=== PATIENT | female | born 1960 | race African-American/Black ===

== ENCOUNTER 2022-11-12 18:00 | Inpatient (IN) | payer BC, OTHER ==
[~2022-11-12] VITALS: Ht 149.9 cm; Wt 111.1 kg
[~2022-11-12 18:00] MED LIST: BENA10TA
[2022-11-12] MEDS: BLOOD SUGAR DIAGNOSTIC STRIP TEST SCH ×5 (18:00→23:28)
[2022-11-12] MEDS ORDERED: SODIUM CHLORIDE 0.9% 1,000 ML IV ONE ×3 (18:15→19:45)
[2022-11-12 18:42] LABS: BASOPHILS % 0.2 % (0.0-2.0); EOSINOPHILS % 0.1 % (0.0-5.0); HEMATOCRIT. 45.9 % (36.0-48.0); HEMOGLOBIN. 12.8 g/dL (12.0-16.0); LYMPHOCYTES % 12.9 % (20.0-50.0); MEAN CORPUSCULAR HEMOGLOBIN 27.8 pg (28.0-32.0); MEAN CORPUSCULAR VOLUME 99.8 fL (81.0-99.0); MEAN PLATELET VOLUME 11.5 fl (7.4-10.4); MONOCYTES % 5.7 % (2.0-8.0); NEUTROPHILS % 81.1 % (40.0-76.0); PLATELET 328 x1000/uL (130-400); RED CELL DISTRIBUTION WIDTH 15.8 % (11.6-14.6)
[2022-11-12 18:51] LABS: CHLORIDE 97 mEq/L (98-107)
[2022-11-12 18:54] LABS: PARTIAL THROMBOPLASTIN TIME 22.2 sec (23.4-31.0); PROTHROMBIN TIME 10.9 sec (9.6-11.0)
[2022-11-12] MEDS ORDERED: CEFTRIAXONE 1GM PREMIX 50 ML IV ONE (19:00)
[2022-11-12] MEDS ORDERED: SODIUM CHLORIDE 0.9% 250 ML IV ONE (19:00)
[2022-11-12] MEDS ORDERED: VANCOMYCIN 1G PREMIX 200 ML IV SCH (19:00)
[2022-11-12 19:12] LABS: CLARITY URINE CLEAR (CLEAR); COLOR URINE YELLOW (YELLOW); KETONES URINE TRACE (NEGATIVE); LEUKOCYTE ESTERASE URINE NEGATIVE (NEGATIVE); NITRITE URINE NEGATIVE (NEGATIVE); OCCULT BLOOD URINE 1+ (NEGATIVE); PROTEIN URINE TRACE (NEGATIVE); UROBILINOGEN URINE 0.2 E.U./dL (0.2-1.0)
[2022-11-12] MEDS ORDERED: INSULIN REGULAR (DRIP) 100 UNITS in SODIUM CHLORIDE 0.9% 100 ML IV ONE (19:45)
[2022-11-12] MEDS ORDERED: INSULIN REGULAR 100U/100ML PMX 100 ML IV ONE (20:00)
[2022-11-12] MEDS ORDERED: DEXTROSE 50% WATER 50ML SYRINGE IV PRN ×2 (20:00→22:30)
[2022-11-12 20:26] LABS: BG BASE EXCESS -14.2 mmol/L (-2.0-2.0); BG CARBOXYHEMOGLOBIN 0.5 % (0.5-1.5); BG DEOXYHEMOGLOBIN 4.1 % (0.0-5.0); BG FRACTION INSPIRED OXYGEN 36; BG HCO3 ACT 13.1 mmol/L (22.0-26.0); BG METHEMOGLOBIN 0.3 % (0.0-1.5); BG OXYGEN SATURATION 95.9 % (92.0-98.5); BG OXYHEMOGLOBIN 95.1 % (94.0-97.0); BG PCO2 35.5 mmHg (35.0-45.0); BG PH 7.184 (7.350-7.450); BG PO2 96.3 mmHg (75.0-100.0); BG SAMPLE SITE RIGHT RADIAL; BG TOTAL HEMOGLOBIN 13.1 g/dL (12.0-18.0); BG VENT MODE NASAL CANNULA
[2022-11-12 21:16] LABS: PHOSPHORUS 6.5 mg/dL (2.5-4.9)
[2022-11-12] MEDS ORDERED: ACETAMINOPHEN 325MG TABLET PO PRN ×2 (22:30)
[2022-11-12] MEDS ORDERED: IPRATROPIUM/ALBUTEROL 0.5-3(2.5)MG/3ML NEB NEB PRN (22:30)
[2022-11-12] MEDS ORDERED: INSULIN REGULAR 100U/100ML PMX 100 ML IV SCH (22:30)
[2022-11-12] MEDS ORDERED: CLONIDINE 0.1MG TABLET PO PRN (22:30)
[2022-11-13] VITALS (32 sets, daily range): BP systolic 80–172; BP diastolic 50–95
[2022-11-13 00:10] LABS: PHOSPHORUS 4.3 mg/dL (2.5-4.9)
[2022-11-13] MEDS: KCL 20MEQ/100ML PREMIX 100 ML IV SCH ×2 (00:25→02:17)
[2022-11-13] MEDS: SODIUM CHLORIDE 0.45% 1,000 ML IV SCH ×2 (00:45→02:30)
[2022-11-13 01:34] LABS: PHOSPHORUS 3.9 mg/dL (2.5-4.9)
[2022-11-13] MEDS: BLOOD SUGAR DIAGNOSTIC STRIP TEST SCH ×25 (02:00→20:30)
[2022-11-13] MEDS ORDERED: INSULIN REGULAR 100U/100ML PMX 100 ML IV SCH (03:45)
[2022-11-13] MEDS: DEXT 5%/0.45% NACL 1000ML 1,000 ML IV SCH ×4 (05:10→20:30)
[2022-11-13 06:33] LABS: BASOPHILS % 0.5 % (0.0-2.0); HEMATOCRIT. 44.6 % (36.0-48.0); HEMOGLOBIN. 14.6 g/dL (12.0-16.0); LYMPHOCYTES % 9.9 % (20.0-50.0); MEAN CORPUSCULAR HEMOGLOBIN 27.9 pg (28.0-32.0); MEAN PLATELET VOLUME 10.1 fl (7.4-10.4); MONOCYTES % 6.3 % (2.0-8.0); NEUTROPHILS % 83.3 % (40.0-76.0); PLATELET 268 x1000/uL (130-400); RED BLOOD CELL COUNT 5.24 mill/uL (4.2-5.4); RED CELL DISTRIBUTION WIDTH 13.9 % (11.6-14.6)
[2022-11-13 06:42] LABS: CHLORIDE 123 mEq/L (98-107)
[2022-11-13 06:56] LABS: HDL CHOLESTEROL 50 mg/dL (40-59); LDL CHOLESTEROL 84 mg/dL (5-100); PHOSPHORUS 3.8 mg/dL (2.5-4.9); T4 FREE 0.93 ng/dL (0.76-1.46)
[2022-11-13] MEDS: ENOXAPARIN 30MG/0.3ML SYR SUBCUT SCH ×2 (09:14→22:30)
[2022-11-13] MEDS: METOPROLOL TARTRATE 25MG TABLET PO SCH ×2 (09:15→17:26)
[2022-11-13] MEDS: AMLODIPINE 10MG TABLET PO SCH (09:15)
[2022-11-13] MEDS: BENAZEPRIL 10MG TABLET PO SCH (09:16)
[2022-11-13] MEDS: PANTOPRAZOLE SODIUM 40 MG/VIAL IV SCH (09:16)
[2022-11-13] MEDS: INSULIN GLARGINE 100 UNITS/ML SUBCUT SCH (10:31)
[2022-11-13 11:59] LABS: PHOSPHORUS 3.5 mg/dL (2.5-4.9)
[2022-11-13] MEDS: INSULIN LISPRO 100 UNITS/ML SUBCUT SCH ×3 (13:20→21:00)
[2022-11-13] MEDS: HYDROCHLOROTHIAZIDE 25MG TABLET PO SCH (15:44)
[2022-11-13] MEDS ORDERED: CEFTRIAXONE IV SCH (20:00)
[2022-11-13] MEDS: VANCOMYCIN 750MG PREMIX 150 ML IV SCH (20:00)
[2022-11-13] MEDS: CEFTRIAXONE 1,000 MG in DEXTROSE 5% WATER 50 ML IV SCH (20:00)
[2022-11-13] MEDS ORDERED: SODIUM CHLORIDE 0.45% IV SCH (20:00)
[2022-11-13] MEDS ORDERED: VANCOMYCIN 1G PREMIX 200 ML IV SCH (20:30)
[2022-11-13] MEDS: INSULIN REGULAR 100U/100ML PMX 100 ML IV SCH (20:51)
[2022-11-14] VITALS (38 sets, daily range): BP systolic 119–173; BP diastolic 46–108
[2022-11-14] MEDS: DEXT 5%/0.45% NACL 1000ML 1,000 ML IV SCH ×3 (01:10→15:01)
[2022-11-14 04:58] LABS: CHLORIDE 119 mEq/L (98-107)
[2022-11-14 05:07] LABS: PHOSPHORUS 1.8 mg/dL (2.5-4.9)
[2022-11-14] MEDS: INSULIN REGULAR 100U/100ML PMX 100 ML IV SCH (05:28)
[2022-11-14 06:54] LABS: BASOPHILS % 0.2 % (0.0-2.0); HEMATOCRIT. 43.6 % (36.0-48.0); HEMOGLOBIN. 14.4 g/dL (12.0-16.0); LYMPHOCYTES % 11.2 % (20.0-50.0); MEAN CORPUSCULAR HEMOGLOBIN 27.8 pg (28.0-32.0); MEAN CORPUSCULAR VOLUME 84.4 fL (81.0-99.0); MEAN PLATELET VOLUME 11.2 fl (7.4-10.4); MONOCYTES % 4.7 % (2.0-8.0); NEUTROPHILS % 83.9 % (40.0-76.0); PLATELET 245 x1000/uL (130-400); RED BLOOD CELL COUNT 5.17 mill/uL (4.2-5.4)
[2022-11-14] MEDS: INSULIN LISPRO 100 UNITS/ML SUBCUT SCH ×4 (08:20→20:15)
[2022-11-14] MEDS: PANTOPRAZOLE SODIUM 40 MG/VIAL IV SCH (09:33)
[2022-11-14] MEDS: ENOXAPARIN 30MG/0.3ML SYR SUBCUT SCH ×2 (09:34→20:14)
[2022-11-14] MEDS: HYDROCHLOROTHIAZIDE 25MG TABLET PO SCH (09:34)
[2022-11-14] MEDS: METOPROLOL TARTRATE 25MG TABLET PO SCH ×2 (09:34→17:36)
[2022-11-14] MEDS: AMLODIPINE 10MG TABLET PO SCH (09:34)
[2022-11-14] MEDS: BENAZEPRIL 10MG TABLET PO SCH (10:10)
[2022-11-14] MEDS: INSULIN GLARGINE 100 UNITS/ML SUBCUT SCH (10:16)
[2022-11-14] MEDS ORDERED: DEXTROSE 50% WATER 50ML SYRINGE IV PRN (15:30)
[2022-11-14] MEDS: BLOOD SUGAR DIAGNOSTIC STRIP TEST SCH ×2 (17:12→20:16)
[2022-11-14] MEDS ORDERED: MAGNESIUM/ALUMINUM HYDROXIDE/SIMETHICONE 30ML UDC PO PRN (19:45)
[2022-11-14] MEDS: VANCOMYCIN 750MG PREMIX 150 ML IV SCH (20:10)
[2022-11-14] MEDS: CEFTRIAXONE 1,000 MG in DEXTROSE 5% WATER 50 ML IV SCH (20:11)
[2022-11-15] VITALS (29 sets, daily range): BP systolic 103–164; BP diastolic 57–81
[2022-11-15 05:34] LABS: CHLORIDE 114 mEq/L (98-107)
[2022-11-15] MEDS: INSULIN LISPRO 100 UNITS/ML SUBCUT SCH ×9 (06:52→21:49)
[2022-11-15] MEDS: BLOOD SUGAR DIAGNOSTIC STRIP TEST SCH ×6 (07:37→21:43)
[2022-11-15] MEDS: HYDROCHLOROTHIAZIDE 25MG TABLET PO SCH ×2 (08:38→20:35)
[2022-11-15] MEDS: BENAZEPRIL 10MG TABLET PO SCH (08:38)
[2022-11-15] MEDS: AMLODIPINE 10MG TABLET PO SCH (08:39)
[2022-11-15] MEDS: ENOXAPARIN 30MG/0.3ML SYR SUBCUT SCH ×2 (08:40→20:36)
[2022-11-15] MEDS: PANTOPRAZOLE SODIUM 40 MG/VIAL IV SCH (08:40)
[2022-11-15] MEDS: METOPROLOL TARTRATE 25MG TABLET PO SCH ×2 (08:42→17:28)
[2022-11-15 09:18] LABS: BG BASE EXCESS -3.1 mmol/L (-2.0-2.0); BG CARBOXYHEMOGLOBIN 1.4 % (0.5-1.5); BG DEOXYHEMOGLOBIN 4.6 % (0.0-5.0); BG FRACTION INSPIRED OXYGEN 21; BG HCO3 ACT 19.2 mmol/L (22.0-26.0); BG METHEMOGLOBIN 0.2 % (0.0-1.5); BG OXYGEN SATURATION 95.3 % (92.0-98.5); BG OXYHEMOGLOBIN 93.8 % (94.0-97.0); BG PCO2 27.4 mmHg (35.0-45.0); BG PH 7.463 (7.350-7.450); BG PO2 71.7 mmHg (75.0-100.0); BG SAMPLE SITE LEFT RADIAL; BG TOTAL HEMOGLOBIN 13.9 g/dL (12.0-18.0); BG VENT MODE ROOM AIR
[2022-11-15] MEDS ORDERED: INSULIN GLARGINE 100 UNITS/ML SUBCUT SCH (10:00)
[2022-11-15] MEDS: VANCOMYCIN 1G PREMIX 200 ML IV SCH ×2 (10:29→21:58)
[2022-11-15] MEDS ORDERED: INSULIN LISPRO 100 UNITS/ML SUBCUT NR (11:30)
[2022-11-15] MEDS: SODIUM CHLORIDE 0.9% 1,000 ML IR SCH ×2 (11:55→17:28)
[2022-11-15] MEDS ORDERED: BLOOD SUGAR DIAGNOSTIC STRIP TEST SCH ×2 (13:15→14:00)
[2022-11-15] MEDS ORDERED: DEXTROSE 50% WATER 50ML SYRINGE IV PRN (13:30)
[2022-11-15] MEDS ORDERED: INSULIN LISPRO 100 UNITS/ML SUBCUT SCH (14:00)
[2022-11-15] MEDS: INSULIN GLARGINE 100 UNITS/ML SUBCUT SCH (17:31)
[2022-11-15 17:41] LABS: BASOPHILS % 0.2 % (0.0-2.0); EOSINOPHILS % 0.2 % (0.0-5.0); HEMATOCRIT. 37.8 % (36.0-48.0); HEMOGLOBIN. 12.1 g/dL (12.0-16.0); LYMPHOCYTES % 15.7 % (20.0-50.0); MEAN CORPUSCULAR HEMOGLOBIN 27.5 pg (28.0-32.0); MEAN CORPUSCULAR VOLUME 86.3 fL (81.0-99.0); MONOCYTES % 7.4 % (2.0-8.0); NEUTROPHILS % 76.5 % (40.0-76.0); PLATELET 164 x1000/uL (130-400); RED BLOOD CELL COUNT 4.38 mill/uL (4.2-5.4); RED CELL DISTRIBUTION WIDTH 14.4 % (11.6-14.6)
[2022-11-15] MEDS ORDERED: POTASSIUM CHLORIDE INJ 40 MEQ in DEXT 5% WATER 250 ML IV ONE (18:15)
[2022-11-15] MEDS: SODIUM CHLORIDE 0.45% 1,000 ML IV SCH (18:42)
[2022-11-15] MEDS: KCL 20MEQ/100ML X 2 FOR TOTAL KCL 40MEQ/200ML IV SCH ×2 (18:43→20:36)
[2022-11-15] MEDS: CEFTRIAXONE 1,000 MG in DEXTROSE 5% WATER 50 ML IV SCH (20:35)
[2022-11-15] MEDS: MAGNESIUM/ALUMINUM HYDROXIDE/SIMETHICONE 30ML UDC PO PRN (20:36)
[2022-11-15 22:24] LABS: CLARITY URINE CLOUDY (CLEAR); COLOR URINE YELLOW (YELLOW); KETONES URINE NEGATIVE (NEGATIVE); LEUKOCYTE ESTERASE URINE NEGATIVE (NEGATIVE); NITRITE URINE NEGATIVE (NEGATIVE); OCCULT BLOOD URINE 2+ (NEGATIVE); PROTEIN URINE 2+ (NEGATIVE); SPECIFIC GRAVITY URINE 1.019 (1.005-1.030); UROBILINOGEN URINE 0.2 E.U./dL (0.2-1.0)
[2022-11-16] VITALS (16 sets, daily range): BP systolic 120–151; BP diastolic 60–95
[2022-11-16 00:02] LABS: CHLORIDE 116 mEq/L (98-107)
[2022-11-16] MEDS: BLOOD SUGAR DIAGNOSTIC STRIP TEST SCH ×9 (00:23→20:59)
[2022-11-16] MEDS: INSULIN LISPRO 100 UNITS/ML SUBCUT SCH ×11 (00:25→21:06)
[2022-11-16] MEDS: SODIUM CHLORIDE 0.45% 1,000 ML IV SCH ×4 (00:26→20:52)
[2022-11-16 06:40] LABS: BASOPHILS % 0.6 % (0.0-2.0); EOSINOPHILS % 1.1 % (0.0-5.0); HEMATOCRIT. 34.9 % (36.0-48.0); HEMOGLOBIN. 11.4 g/dL (12.0-16.0); LYMPHOCYTES % 16.3 % (20.0-50.0); MEAN CORPUSCULAR HEMOGLOBIN 27.2 pg (28.0-32.0); MEAN CORPUSCULAR VOLUME 83.1 fL (81.0-99.0); MONOCYTES % 8.2 % (2.0-8.0); NEUTROPHILS % 73.8 % (40.0-76.0); RED CELL DISTRIBUTION WIDTH 13.9 % (11.6-14.6)
[2022-11-16 06:42] LABS: CHLORIDE 113 mEq/L (98-107)
[2022-11-16 06:54] LABS: PHOSPHORUS 1.3 mg/dL (2.5-4.9)
[2022-11-16 07:59] LABS: PLATELET 137 x1000/uL (130-400)
[2022-11-16] MEDS: PANTOPRAZOLE SODIUM 40 MG/VIAL IV SCH (09:16)
[2022-11-16] MEDS: METOPROLOL TARTRATE 50MG TABLET PO SCH ×2 (09:17→20:49)
[2022-11-16] MEDS: ENOXAPARIN 30MG/0.3ML SYR SUBCUT SCH ×2 (09:31→20:48)
[2022-11-16] MEDS: AMLODIPINE 10MG TABLET PO SCH (09:32)
[2022-11-16] MEDS: VANCOMYCIN 1G PREMIX 200 ML IV SCH ×2 (09:32→20:52)
[2022-11-16] MEDS ORDERED: DEXTROSE 50% WATER 50ML SYRINGE IV PRN (09:45)
[2022-11-16] MEDS ORDERED: POTASSIUM PHOS,M-BASIC-D-BASIC 30 MMOL in SODIUM CHLORIDE 0.9% 500 ML IV SCH (10:00)
[2022-11-16] MEDS ORDERED: SENNOSIDES/DOCUSATE SOD 8.6/50MG TABLET PO PRN (15:00)
[2022-11-16] MEDS: SENNOSIDES/DOCUSATE SOD 8.6/50MG TABLET PO SCH ×2 (15:17→23:00)
[2022-11-16] MEDS: POLYETHYLENE GLYCOL 3350 (17GM) 1 DOSE PACK PO SCH (15:17)
[2022-11-16] MEDS: INSULIN GLARGINE 100 UNITS/ML SUBCUT SCH (17:43)
[2022-11-16 18:08] LABS: CHLORIDE 109 mEq/L (98-107)
[2022-11-16] MEDS: CEFTRIAXONE 1,000 MG in DEXTROSE 5% WATER 50 ML IV SCH (20:48)
[2022-11-16] MEDS: HYDROCHLOROTHIAZIDE 25MG TABLET PO SCH (20:51)
[2022-11-16] MEDS ORDERED: POTASSIUM CHLORIDE INJ 40 MEQ in DEXT 5% WATER 250 ML IV ONE (23:15)
[2022-11-17] VITALS: BP 152/72
[2022-11-17] MEDS: KCL 20MEQ/100ML X 2 FOR TOTAL KCL 40MEQ/200ML IV SCH ×2 (00:46→02:11)
[2022-11-17] MEDS: SODIUM CHLORIDE 0.45% 1,000 ML IV SCH ×2 (02:12→09:09)
[2022-11-17] MEDS: MAGNESIUM/ALUMINUM HYDROXIDE/SIMETHICONE 30ML UDC PO PRN (03:33)
[2022-11-17 04:00] VITALS: BP 154/72
[2022-11-17] MEDS: BLOOD SUGAR DIAGNOSTIC STRIP TEST SCH ×4 (06:48→21:01)
[2022-11-17 07:27] LABS: BASOPHILS % 0.2 % (0.0-2.0); EOSINOPHILS % 1.5 % (0.0-5.0); HEMATOCRIT. 34.9 % (36.0-48.0); HEMOGLOBIN. 11.5 g/dL (12.0-16.0); LYMPHOCYTES % 16.5 % (20.0-50.0); MEAN CORPUSCULAR HEMOGLOBIN 27.4 pg (28.0-32.0); MEAN CORPUSCULAR VOLUME 83.1 fL (81.0-99.0); MEAN PLATELET VOLUME 11.6 fl (7.4-10.4); MONOCYTES % 12.4 % (2.0-8.0); NEUTROPHILS % 69.4 % (40.0-76.0); PLATELET 198 x1000/uL (130-400); RED CELL DISTRIBUTION WIDTH 13.7 % (11.6-14.6)
[2022-11-17 07:51] LABS: CHLORIDE 106 mEq/L (98-107)
[2022-11-17 08:00] VITALS: BP 137/78
[2022-11-17] MEDS: POLYETHYLENE GLYCOL 3350 (17GM) 1 DOSE PACK PO SCH (08:54)
[2022-11-17] MEDS: PANTOPRAZOLE SODIUM 40 MG/VIAL IV SCH (08:54)
[2022-11-17] MEDS: SENNOSIDES/DOCUSATE SOD 8.6/50MG TABLET PO SCH ×2 (08:54→21:01)
[2022-11-17] MEDS: METOPROLOL TARTRATE 50MG TABLET PO SCH ×2 (08:54→21:01)
[2022-11-17] MEDS: AMLODIPINE 10MG TABLET PO SCH (08:54)
[2022-11-17] MEDS: ENOXAPARIN 30MG/0.3ML SYR SUBCUT SCH ×2 (08:55→21:02)
[2022-11-17] MEDS: INSULIN LISPRO 100 UNITS/ML SUBCUT SCH ×7 (08:56→21:04)
[2022-11-17] MEDS: VANCOMYCIN 1G PREMIX 200 ML IV SCH ×2 (09:08→21:05)
[2022-11-17 12:00] VITALS: BP 138/65
[2022-11-17] MEDS ORDERED: POTASSIUM-SODIUM PHOSPHATE POWDER PACKET PO NR (14:30)
[2022-11-17 16:00] VITALS: BP 112/60
[2022-11-17] MEDS ORDERED: AMLO10TA80 PO ×3 (16:23→19:33)
[2022-11-17] MEDS ORDERED: INSU100I38 SQ ×4 (16:23→19:33)
[2022-11-17] MEDS ORDERED: BLOO-1613 MC ×3 (16:23→19:33)
[2022-11-17] MEDS ORDERED: INSU100I28 SQ ×4 (16:23→19:33)
[2022-11-17] MEDS ORDERED: NEED-472 SQ ×3 (16:23→19:33)
[2022-11-17] MEDS ORDERED: METO-539 PO ×3 (16:23→19:33)
[2022-11-17] MEDS ORDERED: METF-414 MT ×4 (16:23→19:33)
[2022-11-17] MEDS: INSULIN GLARGINE 100 UNITS/ML SUBCUT SCH (17:54)
[2022-11-17 20:00] VITALS: BP 130/70
[2022-11-17] MEDS: CEFTRIAXONE 1,000 MG in DEXTROSE 5% WATER 50 ML IV SCH (21:00)
[2022-11-17] MEDS: HYDROCHLOROTHIAZIDE 25MG TABLET PO SCH (21:01)
[2022-11-18] VITALS: BP 123/67
[2022-11-18 04:00] VITALS: BP 141/78
[2022-11-18] MEDS: BLOOD SUGAR DIAGNOSTIC STRIP TEST SCH ×3 (06:39→17:48)
[2022-11-18 06:45] LABS: HEMATOCRIT. 33.2 % (36.0-48.0); HEMOGLOBIN. 10.8 g/dL (12.0-16.0); MEAN CORPUSCULAR HEMOGLOBIN 27.4 pg (28.0-32.0); MEAN CORPUSCULAR VOLUME 83.9 fL (81.0-99.0); MEAN PLATELET VOLUME 11.7 fl (7.4-10.4); PLATELET 238 x1000/uL (130-400); RED BLOOD CELL COUNT 3.95 mill/uL (4.2-5.4); RED CELL DISTRIBUTION WIDTH 13.7 % (11.6-14.6)
[2022-11-18 07:02] LABS: CHLORIDE 101 mEq/L (98-107)
[2022-11-18 07:53] VITALS: BP 133/62
[2022-11-18] MEDS: POLYETHYLENE GLYCOL 3350 (17GM) 1 DOSE PACK PO SCH (09:41)
[2022-11-18] MEDS: AMLODIPINE 10MG TABLET PO SCH (09:41)
[2022-11-18] MEDS: SENNOSIDES/DOCUSATE SOD 8.6/50MG TABLET PO SCH (09:41)
[2022-11-18] MEDS: PANTOPRAZOLE SODIUM 40 MG/VIAL IV SCH (09:41)
[2022-11-18] MEDS: INSULIN LISPRO 100 UNITS/ML SUBCUT SCH ×6 (09:42→18:35)
[2022-11-18] MEDS: METOPROLOL TARTRATE 50MG TABLET PO SCH (09:43)
[2022-11-18] MEDS: VANCOMYCIN 1G PREMIX 200 ML IV SCH (09:44)
[2022-11-18] MEDS: ENOXAPARIN 30MG/0.3ML SYR SUBCUT SCH (09:44)
[2022-11-18 10:21] LABS: NUCLEATED RED BLOOD CELLS 1 /100 WBC; PLATELET ESTIMATE NORMAL
[2022-11-18] MEDS ORDERED: INSU100I38 SQ (10:38)
[2022-11-18] MEDS ORDERED: INSU100I28 SQ ×2 (10:38→15:22)
[2022-11-18 11:50] VITALS: BP 141/62
[2022-11-18 11:59] VITALS: BP 141/62
[2022-11-18 16:06] VITALS: BP 120/56
[2022-11-18] MEDS ORDERED: INSULIN GLARGINE 100 UNITS/ML SUBCUT SCH (18:15)
[2022-11-19] MEDS ORDERED: INSULIN LISPRO (LOW DOSE) 100 UNITS/ML SUBCUT SCH (07:40)
[2022-11-19] MEDS ORDERED: INSULIN LISPRO 100 UNITS/ML SUBCUT SCH (07:40)
[2022-11-19] MEDS ORDERED: FAMOTIDINE 20MG TABLET PO SCH (09:00)
== END 2022-11-18 19:27 | disposition home health service (06) | DRG 871 ==
LOC: ER 18:06 → MICUSO 21:31 → EDBEDREQSVC 21:34 → EDBEDREQ 21:34 → EDBEDREQTM 21:34 → SUPCPDRO 21:40 → CVICU 11-13 02:07 → 7WST 11-16 12:47
PROVIDERS: ADMIT Internal Medicine; ATTEND Internal Medicine
DX: A41.9 Sepsis, unspecified organism (principal); E11.10 Type 2 diabetes mellitus with ketoacidosis without coma; N39.0 Urinary tract infection, site not specified; E87.0 Hyperosmolality and hypernatremia; N17.9 Acute kidney failure, unspecified; Z68.42 Body mass index [BMI] 45.0-49.9, adult; E66.01 Morbid (severe) obesity due to excess calories; E11.22 Type 2 diabetes mellitus with diabetic chronic kidney disease; N18.9 Chronic kidney disease, unspecified; I12.9 Hypertensive chronic kidney disease with stage 1 through stage 4 chronic kidney disease, or unspecified chronic kidney disease; I95.9 Hypotension, unspecified; E86.0 Dehydration; K59.00 Constipation, unspecified; Z79.899 Other long term (current) drug therapy; Z83.3 Family history of diabetes mellitus; Z82.49 Family history of ischemic heart disease and other diseases of the circulatory system
CPT/HCPCS: 36415; 36600; 71045; 76700; 80048; 80051; 80053; 80061; 80202; 81003; 82010; 82375; 82805; 82962; 83036; 83605; 83735; 83880; 84100; 84145; 84439; 84443; 84484; 85025; 86850; 86900; 93005; 97110; 97116; 97162; 97166; 99291; C9113; J0696; J1650; J1815; J3370; J3480; J3490; J7030; J7040; J7050; J7060